=== PATIENT | female | born 1990 | race American Indian/Alaskan Native ===

== ENCOUNTER 2018-02-14 09:17 | Inpatient (IN) | payer MEDICAID ==
[2018-01-05 20:57] VITALS: BMI 31.3
[2018-02-14 11:48] LABS: BASO % 0.1 % (0.0-2.0); EOS # 0.1 K/uL (0.0-0.7); EOS % 1.7 % (0.0-4.0); LYMPH # 1.9 K/uL (1.0-4.3); LYMPH % 23.9 % (20.0-40.0); MEAN CELL VOLUME 86.9 fL (81.0-99.0); MEAN CORPUSCULAR HEMOGLOBIN 28.4 pg (27.0-31.0); MEAN CORPUSCULAR HGB CONC 32.7 g/dL (33.0-37.0); MEAN PLATELET VOLUME 9.2 fL (7.2-11.7); MONO # 0.6 K/uL (0.0-0.8); MONO % 7.1 % (0.0-10.0); NEUT # 5.5 K/uL (1.8-7.0); NEUT % 67.2 % (50.0-75.0); NRBC % 0.1 % (0.0-2.0); RBC 4.24 Mil/uL (3.80-5.20); RED CELL DISTRIBUTION WIDTH 13.9 % (11.5-14.5); WHITE BLOOD COUNT 8.2 K/uL (4.8-10.8)
[2018-02-14] MEDS ORDERED: Lactated Ringer's 1,000 ML IV ONE (11:50)
[2018-02-14 11:52] LABS: SQUAMOUS EPITHIAL 30 /hpf (0-5); URINE BACTERIA RARE (<OCC); URINE BILIRUBIN NEGATIVE (NEGATIVE); URINE BLOOD NEGATIVE (NEGATIVE); URINE CLARITY Hazy (Clear); URINE COLOR Yellow (YELLOW); URINE GLUCOSE (UA) NORMAL (Normal); URINE LEUKOCYTE ESTERASE 2+ Leu/uL (Negative); URINE PROTEIN NEGATIVE (NEGATIVE); URINE UROBILINOGEN NORMAL mg/dL (0.2-1.0)
[2018-02-14] MEDS ORDERED: Lactated Ringer's 1,000 ML IV SCH (12:00)
[2018-02-14 12:07] LABS: ALB/GLOB RATIO 1.1 (1.0-2.1); ALBUMIN 3.6 g/dL (3.5-5.0); ALT/SGPT 15 U/L (9-52); AST/SGOT 20 U/L (14-36); BLOOD UREA NITROGEN 3 mg/dL (7-17); CALCIUM 9.8 mg/dl (8.6-10.4); GFR NON-AFRICAN AMERICAN > 60
--- NOTE | 2018-02-14 12:48 | OBHP ---
Datetime: 02/14/2018 11:47 IP Adm Impression: Term, intrauterine IP Admit Plan: Admit to unit; Initiate labor protocol Admit Comment, IP Provider: HPI: Patient is a 28 year old at 37 weeks 0 days by LMP 05/31 who presents with complaints of contractions that started at 5pm last night. Now complains of contractio ns every 5 to 10 minutes. Rates her pain 4-5 out of 10 currently. She denies vaginal bleeding, denie s loss of fluid. She states she been experiencing movement. PObHx: . 1: miscarriage with subsequent D_C at [facility]. 2: 2013, baby girl at 38 weeks weighing 6lbs 9oz with no complications. PGYNhx: Age of menarche 13, cycle every 28 days lasts 5-7 days. No history of fibroids or cysts. T ested positive for trichomonas this - treated with Flagyl. Hx of condylomatous lesions veronica ayala with TCA. Allergies: NKDA Medications: vitamins, PMHx: hx of anemia that resolved PSHx: none Social hx: denies alcohol, tobacco, drug use. 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 Family hx: Mother age 50s healthy, Father age 50s healthy ROS: left sided upper back pain, reproducible to palpation. Treated for UTI during . naomie es fever, chills, headache, dizziness, chest pain, shortness of breath, nausea, vomiting, diarrhea, c onstipation, leg pain. Assessment 28 year old at 37 weeks gestational age who presents in labor Plan 1. Admit to Labor and delivery 2. Diet: NPO 3. IVF - LR at 125cc/hr IV safter a fluid bolus 4. GBS negative 5. Admission labs Case discussed with Dr. Rodrigo Baker, PGY1 Pelvic Type - PN: Adequate Extremities - PN: Normal Abdomen - PN: Normal Back - PN: Normal Breast - PN: Normal Lungs - PN: Not Done Heart - PN: Normal Thyroid - PN: Normal Neurologic - PN: Normal HEENT - PN: Normal General - PN: Normal Presentation-Admit: Vertex FHR - Baseline A Provider: 120 Membranes, Provider: Intact Contraction Comments Provider: Q 2-3 Comments, ACOG Physical Exam: Gravid abdomen. Gestation - Est Wks by US: 37.0 IP Hx Assessment: The History has been Reviewed and is Current EGA AdmitDate IP: 37.0 Vital Signs Provider: Reviewed; Within Normal Limits IP Chief Complaint: Uterine contractions NICHD Variability Prov Fetus A: Moderate 6-25bpm NICHD Accel Fetus A IP Provider: 10X10 FHR Category Provider Fetus A: Category I NICHD Decel Fetus A IP Provider: Variable Dilatation, Provider: 4-5 Effacement, Provider: 70 Station, Provider: -3 Genitourinary Exam: Normal DTRs - PN: Normal
[2018-02-14] MEDS ORDERED: Bupivacaine HCl/FentaNYL Cit 100 ML EPI ONE (13:37)
[2018-02-14] MEDS ORDERED: DEXTROSE IV SCH (14:45)
[2018-02-14] MEDS ORDERED: LACTATED RINGER S IV SCH (14:45)
[2018-02-14] MEDS ORDERED: Oxytocin 30 UNIT 30 UNITS/500 ML BAG IV ONE ×2 (15:32→15:50)
[2018-02-14] MEDS ORDERED: Oxycodone/Acetaminophen 5/325 mg Tab PO PRN (17:01)
[2018-02-14] MEDS ORDERED: Benzocaine/Menthol 20%-0.5% Topical Spray (60 ml) TOP PRN (17:13)
--- NOTE | 2018-02-14 18:08 | OBPN ---
Datetime: 02/14/2018 15:00 IP Progress Impression: Reassuring heart rate IP Informed Consent Obtain: Vaginal Delivery IP Procedures: Artificial ROM; Intrauterine Pressure Catheter; Scalp Electrode; Sterile Vag Ex am; Epidural Placement IP Progress Plan: Continue present management; Augmentation; Anticipate Vaginal Delivery Membranes, Provider: Ruptured Amniotic Fluid Color, Provider: Clear Contraction Comments Provider: 5-6 mins FHR - Baseline A Provider: 120 Gestation - Est Wks by US: 37.0 Presentation-Admit: Vertex IP Progress Note Comment: Artificial ROM IUPC and ISL placed with ease Contractions were every 5 minutes with Pitocin at 2 mU/min Epidural working well for pain control BP seemed elevated after epidural, no signs or symptoms of PIH. PIH labs reviewed and all within normal limits. Pitocin started for augmentation of labor FHT reactive, with few variables noted, but adequate variability and reactivity. Patient received a few bolus of LR and repositioning as indicated with mild improvement of variabl es Continue present management Hope for vaginal delivery Case discussed with Dr. Rodrigo Baker, PGY1 Vital Signs Provider: Reviewed NICHD Accel Fetus A IP Provider: 15X15 FHR Category Provider Fetus A: Category I NICHD Variability Prov Fetus A: Moderate 6-25bpm Dilatation, Provider: 6 Effacement, Provider: 80 Station, Provider: -2 NICHD Decel Fetus A IP Provider: Variable Datetime: 01/05/2018 22:15 Pool Provider: Negative IP Fetus A Comments: 150
--- NOTE | 2018-02-14 18:10 | OBDS ---
DELIVERY PERSONNEL Delivery Doctor: Talat Wallace DO Boat Loader: Mally Colvin RN Anesthesiologist: Roxie Briscoe MD Resident: Oliva Baker D.O MATERNAL INFORMATION Delivery Anesthesia: Epidural Medications in Delivery: Pitocin 30 units IV Estimated Blood Loss (ml): 200 Placenta Cultured: No Maternal Complications: None Provider Comments: of viable female with APGARS of 9/9 with weight of 6lbs 5oz after tr ansecting tight cervical nuchal cord x1 and over an intact perineum. EBL 200ml Placenta, cord blood and cord pH obtained and sent. No complications. Patient and both tolerated procedure well and both remained in the delivery room. Edmundo Baker, PGY1 LABOR SUMMARY EDC: 03/07/2018 00:00 No. Babies in Womb: 1 Attempted: No Labor Anesthesia: Epidural LABOR INFORMATION Reason for Induction: Not Applicable Onset of Labor: 02/14/2018 01:00 Complete Dilatation: 02/14/2018 16:45 Oxytocin: Augmentation Group B Beta Strep: Negative (Annotations: 02/09/18) Antibiotics # of Doses: 0 Antibiotics Time of Last Dose: 0 Steroids Given: None Reason Steroids Not Administered: Not Applicable MEMBRANES Membranes Rupture Method: Artificial Rupture of Membranes: 02/14/2018 14:52 Length of Rupture (hrs): 2.10 Amniotic Fluid Color: Clear Amniotic Fluid Amount: Moderate Amniotic Fluid Odor: Normal STAGES OF LABOR Stage 1 hrs: 15 Stage 1 min: 45 Stage 2 hrs: 0 Stage 2 min: 13 Stage 3 hrs: 0 Stage 3 min: 7 Total Time in Labor hrs: 16 Total Time in Labor min: 5 VAGINAL DELIVERY Episiotomy: None Laceration Extension: N/A Laceration Type: None Laceration Repair: Not Applicable Initial Vag Sponge Count: 10 Final Vag Sponge Count: 10 Initial Vag Sharps Count: 0 Final Vag Sharps Count: 0 Sponge Count Correct: Yes; Vaginal Sweep Performed Sharps Count Correct: Yes BABY A INFORMATION Infant Delivery Date/Time: 02/14/2018 16:58 Method of Delivery: Vaginal Born in Route : No : N/A Forceps: N/A Vacuum Extraction: N/A Shoulder Dystocia : No SHOULDER DYSTOCIA BABY A Infant Delivery Date/Time: 02/14/2018 16:58 PRESENTATION/POSITION BABY A Presentation: Cephalic Cephalic Presentation: Vertex Vertex Position: Right Occipital Posterior Breech Presentation: N/A PLACENTA INFORMATION BABY A Placenta Delivery Time : 02/14/2018 17:05 Placenta Method of Delivery: Spontaneous Placenta Status: Delivered SCORES BABY A Heart Rate 1 min: >100 bpm Resp Effort 1 min: Good Cry Reflex Irritability 1 min: Cough or Sneeze or Pulls Away Muscle Tone 1 min: Active Motion Color 1 min: Body [place], Extremities Blue Resuscitation Effort 1 min: N/A SCORE 1 MIN: 9 Heart Rate 5 min: >100 bpm Resp Effort 5 min: Good Cry Reflex Irritability 5 min: Cough or Sneeze or Pulls Away Muscle Tone 5 min: Active Motion Color 5 min: Body [place], Extremities Blue Resuscitation Effort 5 min: N/A SCORE 5 MIN: 9 INFORMATION BABY A Gestational Age at Delivery: 37.0 Gestational Status: Outcome : Liveborn Infant Condition : Stable Sex: Female IDENTIFICATION/MEDS BABY A ID Band Number: [id number] ID Band Location: Left Leg; Left Arm Sensor Applied: Yes Sensor Number: [id number] Sensor Location : Cord Clamp Vitamin K Given : Not Given Erythromycin Given: Not Given WEIGHT/LENGTH BABY A Infant Birthweight (gms): 2865 Weight (lb): 6 Weight (oz): 5 Length Inches: 19.00 Infant Length cms: 48.3 CORD INFORMATION BABY A No. Cord Vessels: 3 Nuchal Cord : Around Neck x1, Loose Nuchal Cord Other: and around body Cord Blood Taken: Yes Suction: Mouth; Nose ASSESSMENT BABY A Infant Complications: None Physical Findings at Delivery: Within Normal Limits Respirations: Appears Normal Prototype Machinist/ALS Called : No Care By: Jazmyne LUBIN Transferred To: [facility] (Annotations: Data stored by CPN on behalf of user)
[2018-02-15 08:24] VITALS: O2SAT 98
[2018-02-15 11:22] LABS: BASO % 0.2 % (0.0-2.0); EOS # 0.2 K/uL (0.0-0.7); EOS % 1.9 % (0.0-4.0); HEMOGLOBIN 11.7 g/dL (11.0-16.0); LYMPH # 2.1 K/uL (1.0-4.3); MEAN CELL VOLUME 86.8 fL (81.0-99.0); MEAN CORPUSCULAR HEMOGLOBIN 28.6 pg (27.0-31.0); MEAN PLATELET VOLUME 9.5 fL (7.2-11.7); MONO # 0.7 K/uL (0.0-0.8); MONO % 6.5 % (0.0-10.0); NEUT # 7.6 K/uL (1.8-7.0); NEUT % 71.4 % (50.0-75.0); NRBC % 0.1 % (0.0-2.0); RBC 4.08 Mil/uL (3.80-5.20); RED CELL DISTRIBUTION WIDTH 13.8 % (11.5-14.5); WHITE BLOOD COUNT 10.7 K/uL (4.8-10.8)
--- NOTE | 2018-02-15 22:03 | OBPPN ---
Datetime: 02/15/2018 09:48 PP Pain Prov: Within normal limits PP Nausea Prov: Denies PP Flatus Prov: Yes PP BM Prov: No PP Nausea Prov comment: abdominal cramps PP Breasts Prov: Not Done PP Heart Prov: Normal PP Lungs Prov: Normal PP Abdomen/Uterus Prov: Normal PP Lochia Prov: Normal PP Vulva/Perineum Prov: Normal PP CVA Tenderness Prov: Normal PP Extremities Prov: Normal PP C/S Incision Prov: Not Applicable PP Progress Prov: Not Applicable PP Comments Phys Exam Prov: Gen: NAD. AAOx3. Patient is resting comfortably. Cardio: RRR. Normal s1/s2. Lungs: CTA bilaterally. No w/r/r [place]: soft, NT/ND. Fundus is approximately 1 fingerbreadth beow the umbilicus. Lower Ext: no pitting edema. No calf tenderness. No leg swelling. Negative Richard sign. PP Impression Prov: Normal progression PP Plan Prov: Continue present management PP Progress Note Prov: PPD #1 Patient was seen and evaluated at bedside this morning. She is currently bottlefeeding. Discussed about the benefits of breast feeding and patient was made aware. She has good appeitite. Minimal loch ia. Endorses flatus but no bowel movement yet. She is ambulating well. Otherwise, denies fevers, chil ls, lightheadedness, dizziness, n/v/d. Assessment: Patient is a 28 y/o who is s/p on 02/14. She is currently PPD #1. Plan: 1. Follow up morning cbc 2. c/w motrin for pain control 3. c/w colace 4. Anticipate discharge tomorrow Markos Gonsalez Do, PGY-1 Attending Note: patient seen and evaluated by me with the resident. I agree with the above as docu mented. Patient is afebrile, vital stable. PPD#1 H/H 11.7/35.4. Rh(+). Cllinically stable. Plan: 1) Continue present management 2) Anticiipate discharge home 02/16/18 IP PP Procedures: None Vital Signs Provider PP: Reviewed; Within Normal Limits
--- NOTE | 2018-02-16 08:24 | OBADHP ---
Datetime: 02/14/2018 15:00 Presentation-Admit: Vertex FHR - Baseline A Provider: 120 Amniotic Fluid Color, Provider: Clear Membranes, Provider: Ruptured Contraction Comments Provider: 5-6 mins Gestation - Est Wks by US: 37.0 Vital Signs Provider: Reviewed NICHD Variability Prov Fetus A: Moderate 6-25bpm NICHD Accel Fetus A IP Provider: 15X15 FHR Category Provider Fetus A: Category I NICHD Decel Fetus A IP Provider: Variable Dilatation, Provider: 6 Effacement, Provider: 80 Station, Provider: -2 Datetime: 02/14/2018 11:47 Admit Comment, IP Provider: HPI: Patient is a 28 year old at 37 weeks 0 days by LMP 05/31 who presents with complaints of contractions that started at 5pm last night. Now complains of contractio ns every 5 to 10 minutes. Rates her pain 4-5 out of 10 currently. She denies vaginal bleeding, denie s loss of fluid. She states she been experiencing movement. PObHx: . 1: miscarriage with subsequent D_C at [facility]. 2: 2013, baby girl at 38 weeks weighing 6lbs 9oz with no complications. PGYNhx: Age of menarche 13, cycle every 28 days lasts 5-7 days. No history of fibroids or cysts. T ested positive for trichomonas this - treated with Flagyl. Hx of condylomatous lesions veronica ayala with TCA. Allergies: NKDA Medications: vitamins, PMHx: hx of anemia that resolved PSHx: none Social hx: denies alcohol, tobacco, drug use. 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 Family hx: Mother age 50s healthy, Father age 50s healthy ROS: left sided upper back pain, reproducible to palpation. Treated for UTI during . naomie es fever, chills, headache, dizziness, chest pain, shortness of breath, nausea, vomiting, diarrhea, c onstipation, leg pain. Assessment 28 year old at 37 weeks gestational age who presents in labor Requesting an Epidural NST reactive Plan 1. Admit to Labor and delivery 2. Diet: NPO 3. IVF - LR at 125cc/hr IV after a fluid bolus 4. GBS negative 5. Admission labs 6. Anesthesia notified for an Eepidural placement 7. Anticipate a vaginal delivery Case discussed with Dr. Rodrigo Baker, PGY1 Pelvic Type - PN: Adequate Extremities - PN: Normal Abdomen - PN: Normal Back - PN: Normal Breast - PN: Not Done Lungs - PN: Normal Heart - PN: Normal Thyroid - PN: Normal Neurologic - PN: Normal HEENT - PN: Normal General - PN: Normal Comments, ACOG Physical Exam: Gravid abdomen. IP Hx Assessment: The History has been Reviewed and is Current IP Chief Complaint: Uterine contractions Genitourinary Exam: Normal DTRs - PN: Normal EGA AdmitDate IP: 37.0 IP Adm Impression: Term, intrauterine ; Active labor; Intact Membranes IP Admit Plan: Admit to unit; Initiate labor protocol Datetime: 01/05/2018 22:15 IP Chief Complaint Other: PELVIC PAIN, BACK ACHE IP Fetus A Comments: 150 Pool Provider: Negative
[2018-02-16 09:07] VITALS: BP 113/70; PULSE 92; RESP 18; TEMP 98.7
--- NOTE | 2018-02-16 13:45 | OBPPN ---
Datetime: 02/16/2018 13:07 PP Pain Prov: Within normal limits PP Nausea Prov: Denies PP Flatus Prov: Yes PP BM Prov: Yes PP Breasts Prov: Not Done PP Heart Prov: Normal PP Lungs Prov: Normal PP Abdomen/Uterus Prov: Normal PP Lochia Prov: Normal PP Vulva/Perineum Prov: Normal PP CVA Tenderness Prov: Normal PP Extremities Prov: Normal PP Comments Phys Exam Prov: Vitals stable General: Patient is alert, awake, and in no acute distress. Cardio: Regular rate and rhythm. no murmurs, rubs or gallops. Pulmonary: Clear to auscultation bilaterally. no rhonchi, rales or wheezes. Abdomen soft. Fundus firm, nontender and at the level of umbilicus Extremities: no calf edema, no calf tenderness. PP Impression Prov: Normal progression PP Plan Prov: Discharge PP Progress Note Prov: PPD2 Patient seen and examined at bedside. She states she has intermittent crampy abdominal pain rated 8/10. She states her pain is well controlled with Motrin. She states her lochia is light. She is tole rating regular diet. She is exclusively bottle feeding, and is not interested in breast feeding at th is time. She denies chest pain, shortness of breath, fevers, chills, calf pain. She is ambulating wit hout difficulty. A/P 28 year old at 37 weeks s/p with PPD2 1. Vitals stable 2. AM Labs (yesterday Hb 11.7/Hct35.4) 3. Encourage breast feeding and PO water intake 4. Plan to discuss contraception with Dr. Shaw at [facility] Case discussed with Dr. Rodrigo Baker, PGY1 IP PP Procedures: None Vital Signs Provider PP: Reviewed; Within Normal Limits
--- NOTE | 2018-02-16 13:51 | OBDCSUM ---
Datetime: 02/16/2018 13:40 Discharged to, Provider: Home Follow up at, Provider: [facility] Disch Instr Activity: Normal activity; May Shower Disch Instr Diet: Regular Discharge Instructions, Provider: Routine instructions given Discharge Diagnosis, Provider: Term Delivered Discharge Time: 02/16/2018 14:00 Follow up in weeks, Provider: 6 weeks or prn Disch Referrals: None Contraception discussed, Prov: Yes Disch Activity Restrictions: No exercising; Minimize stair-climbing; No sexual activity; Nothing in vagina - Boley, tampons, douche Discharge Comment, Provider: PPD2 Patient seen and examined at bedside. She states she has intermittent crampy abdominal pain rated 8/10. She states her pain is well controlled with Motrin whrn she takres it but not very consistent. She states her lochia is light. She is tolerating regular diet. She is exclusively bottle feeding, an d is not interested in breast feeding at this time despite adequate counseling. She denies chest pain , shortness of breath, fevers, chills, calf pain. She is ambulating without difficulty. A/P 28 year old at 37 weeks s/p with PPD2 1. Vitals stable 2. Labs PPD # 1: Hb 11.7/Hct35.4) 3. Encourage ambulation and increase PO water intake 4. Plan to discuss contraception with Dr. Shaw at [facility] 5. Stable and Satisfactory condition and recovery 6. Will D/c home with instructions and Rx for Motrin 600 mg po Q 6 hrs prn 7. Instructed to continue Pelvic Rest and PNV daily x 4-6 more months. Contraception after Delivery: Undecided Datetime: 02/16/2018 12:45 Discharged to, Provider: Home Follow up at, Provider: [facility] Disch Instr Activity: Normal activity Disch Instr Diet: Regular Discharge Diet restrict Prov: None Discharge Time: 02/16/2018 14:00 Follow up in weeks, Provider: March 28, 2018 Disch Referrals: None Disch Activity Restrictions: No exercising; No lifting; No driving; Minimize walking; Minimize stair -climbing; No sexual activity; Nothing in vagina - Boley, tampons, douche
== END 2018-02-16 14:15 | disposition home or self-care (01) | DRG 373 ==
LOC: C.EROB 09:17 → C.4D 11:56 → C.4M 20:06
PROVIDERS: ADMIT Obstetrics & Gynecology; ATTEND Obstetrics & Gynecology
PROC: 10E0XZZ Delivery of Products of Conception, External Approach (ICD-10-PCS; principal; 2018-02-14)
DX: O69.81X0 Labor and delivery complicated by cord around neck, without compression, not applicable or unspecified (principal); Z3A.37 37 weeks gestation of pregnancy; Z37.0 Single live birth